=== PATIENT | female | born 1985 | race Caucasian/White ===

== ENCOUNTER 2019-12-15 16:23 | Emergency (ER) | payer MEDICAID, OTHER ==
--- NOTE | 2019-12-15 17:42 | UC ---
Respiratory Complaint HPI - HPI Summary HPI Summary: The patient is a 33-year-old female who has been ill for 5 days .she has felt feverish and had chills. She has had nasal congestion as well as postnasal drip. She has had myalgias and headache. She has had a cough and for the past 24 hours has had some chest tightness. Today during her triage she felt like she would pass out. - History of Current Complaint Chief Complaint: UCRespiratory Stated Complaint: COUGH, BREATHING ISSUES Time Seen by Provider: 12/15/19 17:16 Hx Obtained From: Patient Onset/Duration: Gradual Onset, Lasting Days Timing: Constant Severity Initially: Mild Severity Currently: Mild Pain Intensity: 4 Pain Scale Used: 0-10 Numeric Character: Cough: Nonproductive Associated Signs And Symptoms: Positive: Fever, Chills, Nasal Congestion, Sinus Discomfort - Allergies/Home Medications Allergies/Adverse Reactions: Allergies Allergy/AdvReac Type Severity Reaction Status Date / Time No Known Allergies Allergy Verified 12/15/19 17:00 Home Medications: Home Medications D-Methorphan/PE/Acetaminophen [Cold Multi-Symptom Caplet] 1 tab PO DAILY PRN [History Confirmed 12/15/19] Pseudoephedrine TAB* [Sudafed TAB*] 1 tab PO DAILY PRN 12/15/19 [History Confirmed 12/15/19] Thyroid,Pork [Wp Thyroid] 1 tab PO DAILY 12/15/19 [History Confirmed 12/15/19] buPROPion HCl [Bupropion HCl Xl] 175 mg PO DAILY 12/15/19 [History Confirmed ] PMH/Surg Hx/FS Hx/Imm Hx Previously Healthy: Yes Endocrine History: Thyroid Disease - autoimmune - Surgical History Surgical History: Yes Surgery Procedure, Year, and Place: vi, c-sec - Family History Known Family History: Positive: Hypertension, Non-Contributory - Social History Alcohol Use: None Substance Use Type: None Smoking Status (MU): Never Smoked Tobacco Review of Systems All Other Systems Reviewed And Are Negative: Yes Constitutional: Positive: Fever, Chills, Fatigue Skin: Positive: Negative Eyes: Positive: Negative ENT: Positive: Nasal Discharge, Sinus Congestion, Other Respiratory: Positive: Cough Gastrointestinal: Positive: Negative Genitourinary: Positive: Negative Motor: Positive: Negative Neurovascular: Positive: Negative Musculoskeletal: Positive: Myalgia Neurological/Mental Status: Positive: Headache Psychological: Positive: Negative Physical Exam Triage Information Reviewed: Yes Appearance: Well-Appearing, No Pain Distress, Well-Nourished Vital Signs: Initial Vital Signs Temp 98.0 F 12/15/19 16:55 Pulse 91 12/15/19 16:55 Resp 16 12/15/19 16:55 Pulse Ox 100 12/15/19 16:55 Vital Signs Reviewed: Yes Eyes: Positive: Conjunctiva Clear ENT: Positive: Hearing grossly normal, Pharyngeal erythema, Nasal congestion, TMs normal, Uvula midline. Negative: Nasal drainage, Trismus, Muffled voice, Hoarse voice, Dental tenderness, Sinus tenderness Dental Exam: Normal Neck: Positive: Supple, Nontender, No Lymphadenopathy Respiratory: Positive: Lungs clear, Normal breath sounds, No respiratory distress, Other: - bronchospastic cough Cardiovascular: Positive: RRR, No Murmur, Pulses Normal Musculoskeletal: Positive: ROM Intact, No Edema Neurological: Positive: Alert Psychological Exam: Normal Skin Exam: Normal Diagnostics - Laboratory Lab Results: influenza B + - Radiology No standard instances Radiology Interpretation Completed By: Radiologist Summary of Radiographic Findings: NAD - EKG Cardiac Rate: NL Cardiac Rhythm: Sinus: Normal Ectopy: None ST Segment: Normal Respiratory Course/Dx - Differential Dx/Diagnosis Provider Diagnosis: Influenza B, Near syncope Discharge ED - Sign-Out/Discharge Documenting (check all that apply): Patient Departure All imaging exams completed and their final reports reviewed: No Studies - Discharge Plan Condition: Stable Disposition: HOME Patient Education Materials: Influenza (ED), How to Use a Metered-Dose Inhaler and a Spacer (ED) Referrals: Lupe Crisostomo MD [Primary Care Provider] - 4 Days (if not better) - Billing Disposition and Condition Condition: STABLE Disposition: Home - Attestation Statements Provider Attestation: This patient was not seen by me. I was available for consult. Chart reviewed. SNOW
[2019-12-15 18:14] LABS: Influenza B Molecular POSITIVE (Negative)
[2019-12-15 18:40] VITALS: BP 96/54
[2019-12-15] MEDS: Albuterol HFA INHALER* 8 gm MDI INH ONE (19:07)
== END 2019-12-15 19:30 | disposition home or self-care (01) ==
LOC: UCEAST 16:23
DX: J10.1 Influenza due to other identified influenza virus with other respiratory manifestations (principal); R55 Syncope and collapse; R09.82 Postnasal drip; E06.3 Autoimmune thyroiditis; Z79.890 Hormone replacement therapy
CPT/HCPCS: 71046; 93005; 99212; A9270-GY; G0463